=== PATIENT | female | born 2000 | race Two or more races ===

== ENCOUNTER 2025-01-27 13:06 | Emergency (ER) | payer OTHER ==
[~2025-01-27] VITALS: Ht 152.4 cm; Wt 52.2 kg
[2025-01-27] MEDS ORDERED: FOLIC ACID20 MG PO (14:19)
[2025-01-27] MEDS ORDERED: ONDANSETRON HCL 2 MG/ML VIAL IV ONE (14:45)
[2025-01-27] MEDS ORDERED: FAMOTIDINE/PF 20 MG/2 ML VIAL IV ONE (14:45)
[2025-01-27] MEDS ORDERED: 0.9 % SODIUM CHLORIDE 500 ML IV ONE (14:45)
[2025-01-27] MEDS ORDERED: ONDANSETRON HCL 2 MG/ML VIAL ONE (15:36)
[2025-01-27] MEDS ORDERED: FAMOTIDINE/PF 20 MG/2 ML VIAL ONE (15:37)
[2025-01-27 15:43] LABS: BASO % 0.6 % (0.1-1.2); EOS # 0.08 (0.04-0.54); EOS % 0.8 % (0.7-7.0); HEMATOCRIT 34.8 % (34.1-44.9); HEMOGLOBIN 12.1 g/dL (11.2-15.7); LYMPH # 2.05 (1.18-3.74); LYMPH % 19.3 % (19.3-53.1); MEAN CORPUSCULAR HEMOGLOBIN 25.9 pg (25.6-32.2); MONO # 0.61 (0.24-0.82); MONO % 5.7 % (4.7-12.5); NEUT % 73.2 % (34.0-71.1); PLATELET COUNT 323 K/uL (163-369); RED BLOOD COUNT 4.67 M/uL (3.93-5.22); RED CELL DISTRIBUTION WIDTH 15.4 % (11.6-14.4)
[2025-01-27 15:55] LABS: POTASSIUM 3.59 mEq/L (3.5-5.1)
[2025-01-27 16:03] LABS: ALBUMIN 3.5 gm/dL (3.4-5.0); BILIRUBIN TOTAL 0.5 mg/dL (0.3-1.2); CREATININE SERUM 0.41 mg/dL (0.55-1.02); GFR 187.52; GLOBULINA 4.3 G/DL (2.4-3.5); TOTAL PROTEIN 7.8 gm/dL (6.4-8.2)
[2025-01-27 16:19] LABS: URINE APPEARANCE Clear; URINE BILIRRUBIN Negative (NEGATIVE); URINE BLOOD Negative; URINE COLOR Yellow; URINE GLUCOSE Negative (NEGATIVE); URINE LEUKOCYTE Trace; URINE NITRATE Negative; URINE PROTEIN 30 (NEGATIVE)
[2025-01-27 16:22] LABS: URINE CAST 3.53 uL (0.0-1.40); URINE EPITHELIAL CELLS 35.4 uL (0.0-38.8); URINE RBC 44.6 uL (0.0-20.8); URINE WBC 34.5 uL (0.0-23.2)
[2025-01-27 16:34] LABS: URINE KETONE 40 (NEGATIVE)
[2025-01-27] MEDS ORDERED: ONDANSETRON HCL4 MG PO (17:12)
[2025-01-27] MEDS ORDERED: PEPCID AC20 MG PO (17:12)
[2025-01-27] MEDS ORDERED: CEPHALEXIN500 MG PO (17:12)
== END 2025-01-27 17:35 ==
LOC: ER 13:55
PROVIDERS: Emergency Medicine
DX: O21.0 Mild hyperemesis gravidarum (principal); Z3A.12 12 weeks gestation of pregnancy; Z91.013 Allergy to seafood

== ENCOUNTER 2025-02-20 21:48 | Emergency (ER) | payer OTHER ==
[~2025-02-20] VITALS: Ht 152.4 cm; Wt 50.8 kg
[~2025-02-20 21:48] MED LIST: CEPHALEXIN500 MG PO; FOLIC ACID20 MG PO; ONDANSETRON HCL4 MG PO; PEPCID AC20 MG PO
[2025-02-20] MEDS ORDERED: BUTALB/ACETAMINOPHEN/CAFFEINE 1 TAB TABLET PO ONE ×2 (22:11→22:15)
[2025-02-20] MEDS ORDERED: ONDANSETRON HCL 2 MG/ML VIAL ONE (22:11)
[2025-02-20] MEDS ORDERED: FAMOTIDINE/PF 20 MG/2 ML VIAL ONE (22:12)
[2025-02-20] MEDS ORDERED: ONDANSETRON HCL 2 MG/ML VIAL IV ONE (22:15)
[2025-02-20] MEDS ORDERED: FAMOtidine 10 MG/ML (4ML VIAL) IV ONE (22:15)
[2025-02-20] MEDS ORDERED: 0.9 % SODIUM CHLORIDE 1,000 ML IV ONE (22:15)
[2025-02-20 23:07] LABS: BASO % 0.4 % (0.1-1.2); EOS # 0.04 (0.04-0.54); EOS % 0.3 % (0.7-7.0); LYMPH # 0.53 (1.18-3.74); LYMPH % 4.5 % (19.3-53.1); MEAN PLATELET VOLUME 10.40 fl (9.4-12.4); MONO # 0.51 (0.24-0.82); MONO % 4.3 % (4.7-12.5); NEUT # 10.60 (1.56-6.13); NEUT % 90.1 % (34.0-71.1); RED CELL DISTRIBUTION WIDTH 15.6 % (11.6-14.4)
[2025-02-20 23:29] LABS: ALT/SGPT 14.0 U/L (12-78); AST/SGOT 12.0 U/L (15-37); BILIRUBIN TOTAL 0.32 mg/dL (0.3-1.2); BUN CREA RATIO 8.0 (7.0-25.0); CREATININE SERUM 0.5 mg/dL (0.55-1.02); GFR 149.14; GLOBULINA 4.4 G/DL (2.4-3.5); GLUCOSE FASTING 114.0 mg/dL (65-100); OSMOLALITY SERUM 275.0 MOSM/KG (275-295)
[2025-02-21 03:13] LABS: URINE APPEARANCE Cloudy; URINE BILIRRUBIN Negative (NEGATIVE); URINE BLOOD Negative; URINE COLOR Yellow; URINE GLUCOSE Negative (NEGATIVE); URINE LEUKOCYTE Small; URINE NITRATE Negative; URINE UROBILINOGEN 1.0 E.U./dl
[2025-02-21 03:17] LABS: URINE BACTERIA 5516.1 uL (0.0-1933); URINE CAST 2.05 uL (0.0-1.40); URINE EPITHELIAL CELLS 43.3 uL (0.0-38.8); URINE RBC 41.6 uL (0.0-20.8); URINE WBC 126.4 uL (0.0-23.2)
[2025-02-21 03:25] LABS: URINE KETONE >=160 (NEGATIVE); URINE PROTEIN 100 (NEGATIVE)
[2025-02-21 03:35] LABS: COVID-19 AG NEGATIVE (NEGATIVE)
[2025-02-21] MEDS ORDERED: CEFTRIAXONE SODIUM 1,000 MG VIAL IV STA (03:56)
[2025-02-21] MEDS ORDERED: PEPCID40 MG PO (04:01)
[2025-02-21] MEDS ORDERED: CEPHALEXIN250 MG/5 M PO (04:01)
[2025-02-21] MEDS ORDERED: ZOFRAN8 MG PO (04:01)
[2025-02-21] MEDS ORDERED: CEFTRIAXONE SODIUM 1,000 MG VIAL ONE (04:32)
== END 2025-02-21 04:47 ==
LOC: ER 21:51
PROVIDERS: General Practice
DX: O21.0 Mild hyperemesis gravidarum (principal); O23.42 Unspecified infection of urinary tract in pregnancy, second trimester; N39.0 Urinary tract infection, site not specified; Z3A.15 15 weeks gestation of pregnancy; J00 Acute nasopharyngitis [common cold]; Z91.013 Allergy to seafood; Z20.822 Contact with and (suspected) exposure to COVID-19

== ENCOUNTER 2025-07-31 11:18 | Outpatient (CLI) | payer OTHER ==
[~2025-07-31 11:18] MED LIST changes: +CEPHALEXIN250 MG/5 M PO; +PEPCID40 MG PO; +ZOFRAN8 MG PO
[2025-08-01] MEDS ORDERED: IRON236 MG PO (03:50)
[2025-08-01] MEDS ORDERED: PRENATAL TABLE1 EAC1 PO (03:51)
== END 2025-07-31 11:58 | disposition home or self-care (01) ==
LOC: NST 11:18
PROVIDERS: ATTEND Obstetrics & Gynecology
DX: Z34.83 Encounter for supervision of other normal pregnancy, third trimester (principal)